=== PATIENT | male | born 1985 | race Caucasian/White ===

== ENCOUNTER 2017-02-27 02:16 | Emergency (ER) | payer OTHER ==
--- NOTE | 2017-02-27 03:26 | ED ORDER SUMMARY ---
..... Patient: LUCIANA WAGNER OrderSheet [facility] VisitID: [id number] [place] [address] 31y, M Registration Date/Time: 02/27/2017 ORDER SHEET Weight: 70.3 kg (estimated) Allergies: None GENERAL ORDERS: Crutches (03:25 02/27/2017 Lorena Shaffer) (Ack 3:31 RMarsden R.N.) (Cancelled: Patient Refusal4:29 RMarsden R.N.) MEDICATION ORDERS: Bactrim DS PO (Tablet 800-160 mg) 1 tab (NOW) (03:47 02/27/2017 Lorena Shaffer) (Ack 3:48 RMarsden R.N.) (4:29 RMarsden R.N.) Keflex PO 500 mg (NOW) (03:48 02/27/2017 Lorena Shaffer) (Ack 3:48 RMarsden R.N.) (4:29 RMarsden R.N.) IV FLUIDS: ORDER SHEET NOTES: [Electronically signed by Darren Gardiner Dr. (03:30 02/27/2017)] [Electronically signed by Emilia Lee R.N. (04:02/27/2017)] [Electronically locked/signed by Emilia Lee R.N. (04:02/27/2017)]
--- NOTE | 2017-02-27 03:26 | ED ORDER SUMMARY ---
..... Patient: LUCIANA WAGNER OrderSheet [facility] VisitID: [id number] [place] [address] 31y, M Registration Date/Time: 02/27/2017 ORDER SHEET Weight: 70.3 kg (estimated) Allergies: None GENERAL ORDERS: Crutches (03:25 02/27/2017 Lorena Shaffer) (Ack 3:31 RMarsden R.N.) (Cancelled: Patient Refusal4:29 RMarsden R.N.) MEDICATION ORDERS: Bactrim DS PO (Tablet 800-160 mg) 1 tab (NOW) (03:47 02/27/2017 Lorena Shaffre) (Ack 3:48 RMarsden R.N.) (4:29 RMarsden R.N.) Keflex PO 500 mg (NOW) (03:48 02/27/2017 Lorena Shaffer) (Ack 3:48 RMarsden R.N.) (4:29 RMarsden R.N.) IV FLUIDS: ORDER SHEET NOTES: [Electronically signed by Darren Gardiner Dr. (03:30 02/27/2017)] [Electronically signed by Emilia Lee R.N. (04:02/27/2017)] [Electronically locked/signed by Emilia Lee R.N. (04:02/27/2017)]
--- NOTE | 2017-02-27 03:26 | ED CLINICAL REPORT ---
Clinical Report - Physicians/Mid Levels [facility] [address] [place] [address] 02/27/2017 2:21 [id number] Time Seen: 02:23; initial patient contact. Arrived- By ambulance. Historian- patient. HISTORY OF PRESENT ILLNESS Chief Complaint: Injury to the left foot. The injury happened about 3 days ago. (Possible cellulitis). Occurred at home. Patient is experiencing moderate pain. Patient denies injury to the head or neck. (Seen x 2 at [facility], CT neg for Nec fasciitis. Lactate 0.6. Has Rx for Torodol, Bactrim, and Keflex.). REVIEW OF SYSTEMS The patient complains of pain on weight bearing. He has had swelling. No tingling, weakness, numbness or skin laceration. All systems otherwise negative, except as recorded above. PAST HISTORY Thyroiditis. SURGERIES: Appendectomy. Medications: Levothyroxine Sodium Oral. Ketorolac Tromethamine Oral. Cephalexin Oral. Allergies: None. SOCIAL HISTORY Current every day smoker. History of heavy IV drug use: heroin, methamphetamines. No alcohol use. ADDITIONAL NOTES The nursing notes have been reviewed. PHYSICAL EXAM Vital Signs: 02/27/2017 02:27 BP: 129/70. HR: 105. RR: 15. O2 saturation: 100%. Temp: 98.2 F. Pain level now: 10/10. Have been reviewed. Blood pressure normal. Tachycardic. Respiratory rate normal. Temperature normal. Oxygen saturation normal. Appearance: Alert. Oriented X3. Skin: Skin intact. Skin warm and dry. Extremities: Left foot: moderate erythema and swelling and mild tenderness. Limited weight bearing secondary to pain. Neurovascular intact distally. No laceration or deformity. Foot and ankle exam otherwise negative. Extremities otherwise negative. Neuro, Vascular and Tendons: Vascular status intact. Sensation intact. Motor intact. Tendon function intact. Gait: Limping gait. Neuro: Oriented X 3. No motor deficit. PROGRESS AND PROCEDURES Disposition: Discharged home in good condition. Condition: good. CLINICAL IMPRESSION Cellulitis of the left foot. INSTRUCTIONS Your Current Medications: CONTINUE TAKING THE FOLLOWING MEDICATIONS: Cephalexin Oral. Ketorolac Tromethamine Oral. Levothyroxine Sodium Oral. Follow-up: Follow up with your doctor in about three days. Call for an appointment. Screening today revealed the patient's blood pressure to be in the pre-hypertensive range. The patient should follow up with a primary care provider for blood pressure management. (Electronically signed by Darren Gardiner Dr. 02/27/2017 3:30)
--- NOTE | 2017-02-27 03:26 | ED CLINICAL REPORT ---
Clinical Report - Physicians/Mid Levels [facility] [address] [place] [address] 02/27/2017 2:21 [id number] Time Seen: 02:23; initial patient contact. Arrived- By ambulance. Historian- patient. HISTORY OF PRESENT ILLNESS Chief Complaint: Injury to the left foot. The injury happened about 3 days ago. (Possible cellulitis). Occurred at home. Patient is experiencing moderate pain. Patient denies injury to the head or neck. (Seen x 2 at [facility], CT neg for Nec fasciitis. Lactate 0.6. Has Rx for Torodol, Bactrim, and Keflex.). REVIEW OF SYSTEMS The patient complains of pain on weight bearing. He has had swelling. No tingling, weakness, numbness or skin laceration. All systems otherwise negative, except as recorded above. PAST HISTORY Thyroiditis. SURGERIES: Appendectomy. Medications: Levothyroxine Sodium Oral. Ketorolac Tromethamine Oral. Cephalexin Oral. Allergies: None. SOCIAL HISTORY Current every day smoker. History of heavy IV drug use: heroin, methamphetamines. No alcohol use. ADDITIONAL NOTES The nursing notes have been reviewed. PHYSICAL EXAM Vital Signs: 02/27/2017 02:27 BP: 129/70. HR: 105. RR: 15. O2 saturation: 100%. Temp: 98.2 F. Pain level now: 10/10. Have been reviewed. Blood pressure normal. Tachycardic. Respiratory rate normal. Temperature normal. Oxygen saturation normal. Appearance: Alert. Oriented X3. Skin: Skin intact. Skin warm and dry. Extremities: Left foot: moderate erythema and swelling and mild tenderness. Limited weight bearing secondary to pain. Neurovascular intact distally. No laceration or deformity. Foot and ankle exam otherwise negative. Extremities otherwise negative. Neuro, Vascular and Tendons: Vascular status intact. Sensation intact. Motor intact. Tendon function intact. Gait: Limping gait. Neuro: Oriented X 3. No motor deficit. PROGRESS AND PROCEDURES Disposition: Discharged home in good condition. Condition: good. CLINICAL IMPRESSION Cellulitis of the left foot. INSTRUCTIONS Your Current Medications: CONTINUE TAKING THE FOLLOWING MEDICATIONS: Cephalexin Oral. Ketorolac Tromethamine Oral. Levothyroxine Sodium Oral. Follow-up: Follow up with your doctor in about three days. Call for an appointment. Screening today revealed the patient's blood pressure to be in the pre-hypertensive range. The patient should follow up with a primary care provider for blood pressure management. (Electronically signed by Darren Gardiner Dr. 02/27/2017 3:30)
--- NOTE | 2017-02-27 03:26 | ED NURSING NOTES ---
Clinical Report - Nurses [facility] [address] [place] [address] 02/27/2017 2:21 [id number] Triage time 02:22. Acuity: LEVEL 4. Chief Complaint: LEFT LOWER EXTREMITY PAIN, SWELLING and REDNESS. Location of symptoms- left foot. Alert. No acute distress. SEPSIS SCREEN: Sepsis Screen. Negative (no infection suspected/documented). GISELLE COMA SCORE: Giselle Coma Scale: 15- eyes open spontaneously (4); best verbal response- oriented x 4 (5); best motor response- obeys commands (6). --02:40 Emilia Lee R.N. 02:27 02/27/17. BP: 129/70. HR: 105. RR: 15. O2 saturation: 100% on room air. Temp: 98.2 F. Pain level now: 06/01. --02:40 Emilia Lee R.N. Weight: 70.3 kg estimated. Height/Length: 71 inches. BMI: 21.6. --02:39 Emilia Lee R.N. Medications Cephalexin Oral. --02:32 Emilia Lee R.N. Ketorolac Tromethamine Oral. --02:32 Emilia Lee R.N. Levothyroxine Sodium Oral. --02:34 Emilia Lee R.N. Allergies None. --02:33 Emilia Lee R.N. History Arrived by EMS. Historian: patient. No injury occurred. This occurred (3). Provoking / relieving factors: worsened by movement and standing; (better when elevated). ( Patient states he noticed his foot swelling a few days ago. He states it has not improved since he was seen at [facility] yesterday.). He has had trouble walking. PAST MEDICAL HX: Tetanus status: up-to-date. Immunizations: up-to-date. SOCIAL HX: Light tobacco smoker- less than 1/2 a pack per day. History of heavy drug use: heroin, methamphetamines. No alcohol use. FALL RISK ASSESSMENT: Fall risk assessment completed. No fall risk identified. NUTRITIONAL RISK ASSESSMENT: The nutritional risk assessment revealed no deficiencies. FUNCTIONAL ASSESSMENT: Functional assessment: no impairments noted. LEARNING NEEDS ASSESSMENT: The learning needs assessment revealed no barriers. SKIN INTEGRITY ASSESSMENT: Skin integrity risk assessment completed. No skin integrity risk identified. --02:40 Emilia Lee R.N. PROBLEMS: Thyroiditis. --02:34 Emilia Lee R.N. ADDITIONAL SURGERIES: Appendectomy. --02:33 Emilia Lee R.N. Interventions ID band on patient. To treatment room. --02:40 Emilia Lee R.N. PHYSICAL ASSESSMENT 02:40 02/27/17. To room via wheelchair. GENERAL / NEURO / PSYCH: Oriented X 4. Alert. Appears in no acute distress. EXTREMITIES: Erythema on the extremities. Non-pitting edema of the lower extremities. Extremity pulses are within normal limits. Extremities exhibit normal ROM. Normal gait. Left anterior ankle. Left foot: and dorsal foot. SKIN: Skin intact. Skin is warm and dry. --02:40 Emilia Lee R.N. NURSING PROGRESS NOTES 02:41 02/27/17. Two patient identifiers checked. Call light placed in reach. Side rails up x 1. Bed placed in lowest position. Brakes of bed on. --02:41 Emilia Lee R.N. ( patient given sandwich. lights dimmed for comfort.). --02:45 Emilia Lee R.N. late entry - 03:50. ( patient refused crutches. States his foot feels better after elevation and rest.). --04:28 Emilia Lee R.N. 04:00 02/27/2017 Bactrim DS (Sulfamethoxazole-TMP DS) PO Tablets 1 tab given. Allergies verified and confirmed 5 rights. --04:29 Emilia Lee R.N. 04:00 02/27/2017 Keflex (Cephalexin) PO Tablets 500 mg given. Allergies verified and confirmed 5 rights. --04:29 Emilia Lee R.N. DISPOSITION / DISCHARGE 04:05 02/27/17. No learning barriers present. Discharge instructions provided and reviewed with the patient. Reviewed warnings. Reviewed medication(s). Treatments reviewed. Reviewed referrals. Patient verbalized understanding. Written instructions provided in Pashto. The patient was discharged home. He left the Emergency Department ambulatory and via bus. --04:05 Emilia Lee R.N. 04:03 02/27/17. BP: 113/69. HR: 89. RR: 15. O2 saturation: 99% on room air. Temp: deferred. Pain level now: 05/02. --04:05 Emilia Lee R.N. Locked/Released at 02/27/2017 4:30 by Emilia Lee R.N.
--- NOTE | 2017-02-27 04:30 | ED MAR SUMMARY ---
..... Medication Administration Record [facility] [address] [place] [address] Patient: LUCIANA WAGNER Visit ID: [id number] 31y, M Weight: 70.3 kg Height/Length: 71 in BMI: 21.6 ALLERGIES: None Given 04:02/27/2017 Emilia Lee, RMarileeN. Medication Administered: BACTRIM DS [PO] (SULFAMETHOXAZOLE-TMP DS), Dose: 1 tab Tablets PO. Medication Ordered: Bactrim DS PO (Tablet 800-160 mg) 1 tab (NOW). Given 04:02/27/2017 Emilia Lee, R.N. Medication Administered: KEFLEX [PO] (CEPHALEXIN), Dose: 500 mg Tablets PO. Medication Ordered: Keflex PO 500 mg (NOW).
--- NOTE | 2017-02-27 04:30 | ED MED RECONCILIATION SUMMARY ---
Patient: LUCIANA WAGNER Medication Reconciliation Report [facility] VisitID: [id number] [address] [place] [address] 31y, M Registration Date/Time: 02/27/2017 Weight: 70.3 kg Height/Length: 71 in. BMI: 21.6 ALLERGIES: None The patient's Home Medications are listed below: CONTINUE TAKING THE FOLLOWING MEDICATIONS: Cephalexin Oral Ketorolac Tromethamine Oral Levothyroxine Sodium Oral The source(s) of the original Home Medication information: Not obtained. The following Medications were given to the patient in the Emergency Department: Bactrim DS [PO] PO 1 tab, administered: 02/27/2017 4:00:00 AM Keflex [PO] PO 500 mg, administered: 02/27/2017 4:00:00 AM The following Medications were prescribed to the patient: None.
--- NOTE | 2017-02-27 04:30 | ED MED RECONCILIATION SUMMARY ---
Patient: LUCIANA WAGNER Medication Reconciliation Report [facility] VisitID: [id number] [address] [place] [address] 31y, M Registration Date/Time: 02/27/2017 Weight: 70.3 kg Height/Length: 71 in. BMI: 21.6 ALLERGIES: None The patient's Home Medications are listed below: CONTINUE TAKING THE FOLLOWING MEDICATIONS: Cephalexin Oral Ketorolac Tromethamine Oral Levothyroxine Sodium Oral The source(s) of the original Home Medication information: Not obtained. The following Medications were given to the patient in the Emergency Department: Bactrim DS [PO] PO 1 tab, administered: 02/27/2017 4:00:00 AM Keflex [PO] PO 500 mg, administered: 02/27/2017 4:00:00 AM The following Medications were prescribed to the patient: None.
--- NOTE | 2017-02-27 04:30 | ED DISCHARGE INSTRUCTIONS ---
Patient: LUCIANA WAGNER General Instructions [facility] VisitID: [id number] [place] [address] 31y, M Registration Date/Time: 02/27/2017 Cellulitis of the left foot. INSTRUCTIONS Your Current Medications: CONTINUE TAKING THE FOLLOWING MEDICATIONS: Cephalexin Oral. Ketorolac Tromethamine Oral. Levothyroxine Sodium Oral. Follow-up: Follow up with your doctor in about three days. Call for an appointment. Screening today revealed the patient's blood pressure to be in the pre-hypertensive range. The patient should follow up with a primary care provider for blood pressure management. ADDITIONAL INFORMATION Cellulitis You have an infection of the skin known as cellulitis. This usually starts with a scrape, cut, insect bite, blister or other opening in the skin which becomes infected. This is a serious condition. It must be watched closely to be sure the infection is not spreading. With antibiotic treatment, the size of the red area will gradually shrink in size until the skin returns to normal. This will take 7-10 days. The red area should never increase in size once the antibiotic medicine has been started. Occasionally, an infection will be resistant to one antibiotic and another one will have to be used. Home Care: 1) Limit the use of the affected part, since excess movement can cause the infection to spread. 2) If the infection is on your leg, walk as little as possible during the first few days of the treatment. Keep your leg elevated while sitting. This will reduce swelling. 3) Take all of the antibiotic medicine exactly as directed until it is gone. Be careful not to miss any doses, especially during the first seven days. Follow Up with your doctor or this facility as directed. Check the infected area daily for the warning signs listed below. Get Prompt Medical Attention if any of the following occur: -- Spreading area of redness -- Increasing swelling or pain -- Appearance of pus or drainage -- Fever over 100.4 F (38.0 C) oral, or over 101.4 F (38.6 C) rectal, after two days on antibiotics You have been given the following additional information: Cellulitis (Electronically signed by Darren Gardiner Dr. 02/27/2017 3:30)
--- NOTE | 2017-02-27 04:30 | ED MAR SUMMARY ---
..... Medication Administration Record [facility] [address] [place] [address] Patient: LUCIANA WAGNER Visit ID: [id number] 31y, M Weight: 70.3 kg Height/Length: 71 in BMI: 21.6 ALLERGIES: None Given 04:02/27/2017 Emilia Lee, RMarileeN. Medication Administered: BACTRIM DS [PO] (SULFAMETHOXAZOLE-TMP DS), Dose: 1 tab Tablets PO. Medication Ordered: Bactrim DS PO (Tablet 800-160 mg) 1 tab (NOW). Given 04:02/27/2017 Emilia Lee, R.N. Medication Administered: KEFLEX [PO] (CEPHALEXIN), Dose: 500 mg Tablets PO. Medication Ordered: Keflex PO 500 mg (NOW).
--- NOTE | 2017-02-27 04:30 | ED DISCHARGE INSTRUCTIONS ---
Patient: LUCIANA WAGNER General Instructions [facility] VisitID: [id number] [place] [address] 31y, M Registration Date/Time: 02/27/2017 Cellulitis of the left foot. INSTRUCTIONS Your Current Medications: CONTINUE TAKING THE FOLLOWING MEDICATIONS: Cephalexin Oral. Ketorolac Tromethamine Oral. Levothyroxine Sodium Oral. Follow-up: Follow up with your doctor in about three days. Call for an appointment. Screening today revealed the patient's blood pressure to be in the pre-hypertensive range. The patient should follow up with a primary care provider for blood pressure management. ADDITIONAL INFORMATION Cellulitis You have an infection of the skin known as cellulitis. This usually starts with a scrape, cut, insect bite, blister or other opening in the skin which becomes infected. This is a serious condition. It must be watched closely to be sure the infection is not spreading. With antibiotic treatment, the size of the red area will gradually shrink in size until the skin returns to normal. This will take 7-10 days. The red area should never increase in size once the antibiotic medicine has been started. Occasionally, an infection will be resistant to one antibiotic and another one will have to be used. Home Care: 1) Limit the use of the affected part, since excess movement can cause the infection to spread. 2) If the infection is on your leg, walk as little as possible during the first few days of the treatment. Keep your leg elevated while sitting. This will reduce swelling. 3) Take all of the antibiotic medicine exactly as directed until it is gone. Be careful not to miss any doses, especially during the first seven days. Follow Up with your doctor or this facility as directed. Check the infected area daily for the warning signs listed below. Get Prompt Medical Attention if any of the following occur: -- Spreading area of redness -- Increasing swelling or pain -- Appearance of pus or drainage -- Fever over 100.4 F (38.0 C) oral, or over 101.4 F (38.6 C) rectal, after two days on antibiotics You have been given the following additional information: Cellulitis (Electronically signed by Darren Gardiner Dr. 02/27/2017 3:30)
== END 2017-02-27 04:05 | disposition home or self-care (01) ==
LOC: ED SRH 02:16
DX: L03.116 Cellulitis of left lower limb (principal); F17.200 Nicotine dependence, unspecified, uncomplicated; Z79.899 Other long term (current) drug therapy